=== PATIENT | male | born 1935 | race Two or more races ===

== ENCOUNTER 2025-02-18 15:27 | Inpatient (IN) | payer MEDICARE, OTHER ==
[~2025-02-18] VITALS: Ht 175.3 cm; Wt 49.9 kg
[2025-02-18] MEDS ORDERED: CEFTRIAXONE /D5W 50ML IVPB **ER PYXIS IV ONE (15:42)
[2025-02-18] MEDS ORDERED: ONDANSETRON 4 MG/2 ML VIAL ONE (15:42)
[2025-02-18] MEDS ORDERED: HYDROMORPHONE 1 MG/1 ML DISP.SYRIN ONE (15:42)
[2025-02-18] MEDS: ONDANSETRON 4 MG/2 ML VIAL IV ONE (15:48)
[2025-02-18] MEDS: CEFTRIAXONE 1 G in IV DEXTROSE 5% 50 ML IV ONE (15:48)
[2025-02-18] MEDS: HYDROMORPHONE 1 MG/1 ML DISP.SYRIN IV ONE (15:48)
[2025-02-18] MEDS ORDERED: TAMS-3 PO (16:01)
[2025-02-18] MEDS ORDERED: ONDA4TAB11 SL (16:01)
[2025-02-18] MEDS ORDERED: BENA20TA9 PO (16:01)
[2025-02-18] MEDS ORDERED: OXYC5CAP18 PO (16:01)
[2025-02-18] MEDS ORDERED: AMLO2.5T4 PO (16:01)
[2025-02-18] MEDS ORDERED: PRED2.5T PO (16:01)
[2025-02-18] MEDS ORDERED: DIPH1TAB PO (16:01)
[2025-02-18 16:05] LABS: PLATELET COUNT (AUTO) 227 K/uL (152-348); RED BLOOD CELL COUNT(AUTO) 3.51 MIL/uL (4.06-5.63); RED CELL DISTRIBUTION WIDTH 17.7 % (12.1-16.2); WHITE BLOOD COUNT (AUTO) 8.0 K/uL (3.6-10.2)
[2025-02-18] MEDS ORDERED: METRONIDAZOLE 500 MG/NS 100ML 100 ML IV ONE (16:08)
[2025-02-18 16:13] LABS: CREATININE 1.0 mg/dL (0.6-1.3); SODIUM SERUM 140 mmol/L (136-145); UREA NITROGEN, BLOOD 33 mg/dL (7-18)
[2025-02-18] MEDS: METRONIDAZOLE 500 MG/NS 100ML 100 ML IV ONE (16:14)
[2025-02-18 16:19] LABS: ASPARTATE AMINOTRANSFERASE 178 U/L (15-37); TOTAL PROTEIN, SERUM 5.2 g/dL (6.4-8.2)
[2025-02-18 16:41] LABS: LACTIC ACID 4.0 mmol/L (0.4-2.0)
[2025-02-18] MEDS: IV NS 1000 ML 2,000 ML IV ONE (18:00)
[2025-02-18 18:14] LABS: *BILIRUBIN,URIN 2+ (NEGATIVE); *BLOOD, URINE NEGATIVE (NEGATIVE); *CLARITY,URINE SLIGHTLY CLOUDY (CLEAR); *COLOR,URINE DARK YELLOW (YELLOW); *KETONES,URINE 2+ (NEGATIVE); *PROTEIN,URINE 1+ (NEGATIVE); *UROBILINOGEN,URINE 4.0 E.U./dl (NORMAL); LEUKOCYTE ESTERASE ,URINE NEGATIVE (NEGATIVE); NITRITE, URINE NEGATIVE (NEGATIVE); UGLUCOSE TRACE (NEGATIVE)
[2025-02-18] MEDS ORDERED: ONDANSETRON 4 MG/2 ML VIAL IV PRN (18:45)
[2025-02-18] MEDS ORDERED: MAGNESIUM HYDROXIDE 30 ML LIQUID UDC PO PRN (18:45)
[2025-02-18] MEDS ORDERED: METOCLOPRAMIDE HCL 10 MG/2 ML VIAL ONE (18:57)
[2025-02-18] MEDS: METOCLOPRAMIDE HCL 10 MG/2 ML VIAL IV ONE (18:58)
[2025-02-18 19:00] VITALS: BP 158/83; TEMP 97.7; O2SAT 99
[2025-02-18 19:07] LABS: SQUAMOUS EPITHELIAL CELL,UR FEW /HPF (NONE SEEN)
[2025-02-18] MEDS: IV NS 1000 ML 1,000 ML IV PRN (20:00)
[2025-02-19] VITALS (8 sets, daily range): BP systolic 107–143; BP diastolic 54–74; TEMP 97.4–99; O2SAT 92–99
[2025-02-19] MEDS: PANTOPRAZOLE SODIUM 40 MG TABLET.DR PO SCH (06:10)
[2025-02-19 06:48] LABS: PLATELET COUNT (AUTO) 181 K/uL (152-348); RED BLOOD CELL COUNT(AUTO) 3.29 MIL/uL (4.06-5.63); RED CELL DISTRIBUTION WIDTH 17.2 % (12.1-16.2); WHITE BLOOD COUNT (AUTO) 9.1 K/uL (3.6-10.2)
[2025-02-19 07:00] LABS: ASPARTATE AMINOTRANSFERASE 626 U/L (15-37); CREATININE 1.0 mg/dL (0.6-1.3); SODIUM SERUM 136 mmol/L (136-145); TOTAL PROTEIN, SERUM 4.6 g/dL (6.4-8.2); UREA NITROGEN, BLOOD 34 mg/dL (7-18)
[2025-02-19] MEDS: ACETAMINOPHEN 325 MG TABLET PO PRN (07:57)
[2025-02-19] MEDS ORDERED: TAMSULOSIN HCL 0.4 MG CAP.SR.24H PO SCH (09:00)
[2025-02-19] MEDS ORDERED: AMLODIPINE 2.5 MG TABLET PO SCH (09:00)
[2025-02-19] MEDS ORDERED: BENAZEPRIL HCL 20 MG TABLET PO PRN (09:00)
[2025-02-19] MEDS ORDERED: BENAZEPRIL HCL 20 MG TABLET PO SCH (09:00)
[2025-02-19] MEDS ORDERED: AMLODIPINE 2.5 MG TABLET PO PRN (09:00)
[2025-02-19] MEDS ORDERED: IV NS 1000 ML 1,000 ML IV PRN (11:34)
[2025-02-19] MEDS: ENSURE ENLIVE (VAN) 240 ML LIQUID PO SCH (13:02)
[2025-02-19] MEDS: CEFTRIAXONE 1 G in IV DEXTROSE 5% 50 ML IV SCH (14:55)
[2025-02-19] MEDS ORDERED: IOHEXOL 300MG/ML 100 ML INFUS..BTL ONE (18:24)
[2025-02-19 19:15] LABS: IRON, SERUM 10.0 ug/dL (50-175); LACTATE DEHYDROGENASE 527.0 U/L (85-227)
[2025-02-19] MEDS: TAMSULOSIN HCL 0.4 MG CAP.SR.24H PO SCH (20:29)
[2025-02-19] MEDS ORDERED: MEROPENEM 1 G in IV NORMAL SALINE 100 ML IV SCH (22:15)
[2025-02-19] MEDS ORDERED: ALBUTEROL SULFATE 2.5 MG/ 0.5 ML NEBU NEB PRN (22:15)
[2025-02-19] MEDS ORDERED: ACETAMINOPHEN 650 MG SUPP.RECT RC PRN (22:15)
[2025-02-19] MEDS: IV D5/ 0.9% NACL 1,000 ML IV PRN (22:52)
[2025-02-19] MEDS: MEROPENEM 1 G in IV NORMAL SALINE 100 ML IV ONE (23:05)
[2025-02-20] VITALS: BP 116/58; TEMP 98.6; O2SAT 97
[2025-02-20 04:00] VITALS: BP 116/54; TEMP 97.8; O2SAT 96
[2025-02-20 07:05] LABS: PLATELET COUNT (AUTO) 142 K/uL (152-348); RED BLOOD CELL COUNT(AUTO) 2.67 MIL/uL (4.06-5.63); RED CELL DISTRIBUTION WIDTH 17.9 % (12.1-16.2); WHITE BLOOD COUNT (AUTO) 6.4 K/uL (3.6-10.2)
[2025-02-20 07:23] LABS: ASPARTATE AMINOTRANSFERASE 205 U/L (15-37); CREATININE 1.0 mg/dL (0.6-1.3); SODIUM SERUM 141 mmol/L (136-145); TOTAL PROTEIN, SERUM 4.1 g/dL (6.4-8.2); UREA NITROGEN, BLOOD 29 mg/dL (7-18)
[2025-02-20 08:00] VITALS: BP 102/50; TEMP 98.3; O2SAT 96
[2025-02-20] MEDS: MEROPENEM 1 G in IV NORMAL SALINE 100 ML IV SCH ×2 (08:00→18:17)
[2025-02-20] MEDS ORDERED: MEROPENEM 1 G in IV NORMAL SALINE 100 ML IV SCH (08:00)
[2025-02-20] MEDS: PANTOPRAZOLE SODIUM 40 MG VIAL IV SCH (09:09)
[2025-02-20] MEDS: SODIUM PHOSPHATE MM 15 MMOL in IV NORMAL SALINE 250 ML IV ONE (12:52)
[2025-02-20] MEDS ORDERED: HYDR1DIS2 IV (13:15)
[2025-02-20] MEDS ORDERED: ALBU2.5V13 NEB (13:15)
[2025-02-20] MEDS ORDERED: PANT40VI IV (13:15)
[2025-02-20] MEDS ORDERED: ACET650S13 RC (13:15)
[2025-02-20] MEDS ORDERED: ONDA4VIA23 IV (13:15)
[2025-02-20] MEDS ORDERED: diphenhydrAMINE 50 MG/1 ML VIAL IV ONE (13:45)
[2025-02-20] MEDS ORDERED: SOD FERRIC GLUC COMPLX/SUCROSE 125 MG in IV NORMAL SALINE 100 ML IV SCH (14:00)
[2025-02-20 16:24] VITALS: BP 119/59; TEMP 97.7; O2SAT 97
[2025-02-20 16:30] VITALS: O2SAT 96
[2025-02-20] MEDS: HYDROMORPHONE 1 MG/1 ML DISP.SYRIN IV PRN (19:51)
[2025-02-20 20:18] VITALS: BP 123/58; TEMP 98; O2SAT 91
[2025-02-20] MEDS: LORAZEPAM 2 MG/1 ML VIAL IV PRN (22:11)
[2025-02-21 00:29] VITALS: BP 110/50; TEMP 98.6; O2SAT 92
[2025-02-21 05:08] LABS: AFP, TUMOR MARKER <1.8 ng/mL (0.0-6.4); CARBOHYDRATE ANTIGEN, 19-9 48 U/mL (0-35); CARCINOEMBRYONIC AG (CEA) 3.9 ng/mL (0.0-4.7)
[2025-02-21 06:07] LABS: *IMMUNOGLOBULIN G, SERUM 615 mg/dL (603-1613); IMMUNOGLOBULIN A, SERUM 245 mg/dL (61-437); IMMUNOGLOBULIN M, SERUM 79 mg/dL (15-143)
[2025-02-21 09:08] LABS: FREE KAPPA LT CHAINS SERUM 31.0 mg/L (3.3-19.4); FREE LAMBDA LT CHAIN SERUM 19.7 mg/L (5.7-26.3); KAPPA/LAMBDA RATIO SERUM 1.57 (0.26-1.65)
== END 2025-02-21 01:20 | disposition short-term general hospital (02) | DRG 375 ==
LOC: ER 15:27 → TELE3 18:48
PROVIDERS: ADMIT Nurse Practitioner Family; ATTEND Nurse Practitioner Family
PROC: 05HC33Z Insertion of Infusion Device into Left Basilic Vein, Percutaneous Approach (ICD-10-PCS; principal; 2025-02-19)
DX: C20 Malignant neoplasm of rectum (principal); C77.5 Secondary and unspecified malignant neoplasm of intrapelvic lymph nodes; C78.7 Secondary malignant neoplasm of liver and intrahepatic bile duct; E87.20 Acidosis, unspecified; E44.0 Moderate protein-calorie malnutrition; R18.8 Other ascites; J90 Pleural effusion, not elsewhere classified; J98.11 Atelectasis; Z68.1 Body mass index [BMI] 19.9 or less, adult; E86.0 Dehydration; M62.59 Muscle wasting and atrophy, not elsewhere classified, multiple sites; E88.09 Other disorders of plasma-protein metabolism, not elsewhere classified; I11.9 Hypertensive heart disease without heart failure; N21.0 Calculus in bladder; N28.1 Cyst of kidney, acquired; N40.0 Benign prostatic hyperplasia without lower urinary tract symptoms; K59.00 Constipation, unspecified; J98.4 Other disorders of lung; Z79.899 Other long term (current) drug therapy; R79.89 Other specified abnormal findings of blood chemistry; D64.9 Anemia, unspecified
CPT/HCPCS: 36415; 71045; 71260; 82105; 82378; 82784; 83605; 83615; 83690; 83735; 84100; 84153; 84155; 84165; 84443; 84484; 85025; 85730; 86301; 86334; 86850; 86870; 86900; 86901; 86920; 87040; 87086; 93307; A4606; A4663; C1758; G0378; J0696; J1171; J2060; J2185; J2405; J2470; J2765; J3490; J7040; J7042; Q9967